=== PATIENT | male | born 1985 | race Caucasian/White ===

== ENCOUNTER 2022-09-22 14:19 | Emergency (ER) | payer SELFPAY ==
--- NOTE | 2022-09-22 15:04 | NUR ---
PER MOTHER SHE IS TAKING HER SON TO [facility],
== END 2022-09-22 15:04 | disposition left against medical advice (07) ==
LOC: MED 14:19
DX: R45.851 Suicidal ideations (principal); Z53.21 Procedure and treatment not carried out due to patient leaving prior to being seen by health care provider

== ENCOUNTER 2024-02-14 22:50 | Emergency (ER) | payer MEDICAID | END 2024-02-14 23:13 | disposition left against medical advice (07) | LOC: MED 22:50 | DX: M79.606 Pain in leg, unspecified (principal); Z53.21 Procedure and treatment not carried out due to patient leaving prior to being seen by health care provider ==